=== PATIENT | male | born 1955 | race Two or more races ===

== ENCOUNTER 2021-02-15 09:52 | Emergency (ER) | payer OTHER, MEDICAID ==
[~2021-02-15] VITALS: Ht 188 cm; Wt 131.5 kg
[2021-02-15] MEDS ORDERED: cloNIDine HCL 0.1 MG TAB PO ONE (10:00)
[2021-02-15 10:28] LABS: Basophils # (auto) 0.1 10 ^3/uL (0-0.2); Basophils % (auto) 0.8 % (0.0-2.0); Eosinophils # (auto) 0.7 10 ^3/uL (0-0.8); Eosinophils % (auto) 10.4 % (0.0-7.0); Hemoglobin 14.9 g/dL (13.5-17.5); Lymphocytes # (auto) 1.7 10 ^3/uL (0.4-5.4); Lymphocytes % (auto) 26.7 % (10.0-50.0); Mean Corpuscular Hemoglobin 32.5 pg (28.0-32.0); Mean Corpuscular Hgb Conc. 33.9 g/dL (32.0-36.0); Mean Corpuscular Volume 95.9 fL (80.0-100.0); Monocytes # (auto) 0.5 10 ^3/uL (0-1.3); Monocytes % (auto) 8.2 % (0.0-12.0); Neutrophils # (auto) 3.5 10 ^3/uL (1.6-8.6); Neutrophils % (auto) 53.9 % (37.0-80.0); Nucleated Red Blood Cells % 0.1 %; Platelet Count (auto) 165 10^3/uL (140-450); Red Blood Cells 4.59 10^6/uL (4.5-5.90); Red Cell Distribution Width 14.4 % (11.8-14.3); White Blood Cell 6.5 10^3/uL (4.4-10.8)
[2021-02-15 10:47] LABS: Albumin 3.4 g/dL (3.4-5.0); Calcium 8.4 mg/dL (8.5-10.1); Potassium 4.2 mmol/L (3.5-5.1)
[2021-02-15 10:50] LABS: Bilirubin, Total 0.3 mg/dL (0.2-1.0)
[2021-02-15 11:06] VITALS: BP 174/120
[2021-02-15] MEDS ORDERED: ASPirin 81 mg TAB PO ONE (11:15)
[2021-02-15 12:01] LABS: INR 1.02 (0.9-1.15); Partial Thromboplastin Time 29.2 sec (23.0-31.2)
[2021-02-15] MEDS ORDERED: DIPH25CA66 PO (17:27)
[2021-02-15] MEDS ORDERED: DIVA500T2 PO (17:27)
[2021-02-15] MEDS ORDERED: OLAN1TAB7 PO (17:27)
[2021-02-15] MEDS ORDERED: METO-462 PO (17:27)
[2021-02-15] MEDS ORDERED: PARO10TA93 PO (17:27)
== END 2021-02-15 15:00 | disposition left against medical advice (07) ==
LOC: ER 09:52
DX: I16.0 Hypertensive urgency (principal); R06.02 Shortness of breath; R77.8 Other specified abnormalities of plasma proteins; Z88.0 Allergy status to penicillin; Z88.2 Allergy status to sulfonamides
CPT/HCPCS: 36415; 71046; 80053; 83735; 83880; 84484; 85025; 85379; 85610; 85730; 93005

== ENCOUNTER 2021-02-15 13:19 | Inpatient (IN) | payer OTHER, MEDICAID ==
[~2021-02-15] VITALS: Ht 188 cm; Wt 134.0 kg
[2021-02-15] MEDS ORDERED: ENOXAPARIN SOD 150 MG/1 ML SYRINGE SC ONE (14:45)
[2021-02-15] MEDS ORDERED: NITROGLYCERIN 0.4 MG SL TAB SL PRN ×3 (15:00→16:45)
[2021-02-15] MEDS ORDERED: MORPHINE SULF INJ 2 MG/ML SYRINGE 1ML IV PRN ×3 (15:00→16:45)
[2021-02-15 15:08] LABS: Basophils # (auto) 0.1 10 ^3/uL (0-0.2); Basophils % (auto) 0.8 % (0.0-2.0); Eosinophils # (auto) 0.6 10 ^3/uL (0-0.8); Eosinophils % (auto) 9.1 % (0.0-7.0); Hematocrit 42.7 % (41.0-53.0); Hemoglobin 14.9 g/dL (13.5-17.5); Lymphocytes # (auto) 1.6 10 ^3/uL (0.4-5.4); Lymphocytes % (auto) 22.9 % (10.0-50.0); Mean Corpuscular Hemoglobin 33.3 pg (28.0-32.0); Mean Corpuscular Hgb Conc. 34.8 g/dL (32.0-36.0); Mean Corpuscular Volume 95.6 fL (80.0-100.0); Monocytes # (auto) 0.6 10 ^3/uL (0-1.3); Monocytes % (auto) 8.7 % (0.0-12.0); Neutrophils # (auto) 4.1 10 ^3/uL (1.6-8.6); Neutrophils % (auto) 58.5 % (37.0-80.0); Nucleated Red Blood Cells % 0.2 %; Platelet Count (auto) 158 10^3/uL (140-450); Red Blood Cells 4.46 10^6/uL (4.5-5.90); Red Cell Distribution Width 14.3 % (11.8-14.3); White Blood Cell 6.9 10^3/uL (4.4-10.8)
[2021-02-15 15:25] LABS: Albumin 3.5 g/dL (3.4-5.0); BUN/Creatinine Ratio 21.7; Calcium 8.3 mg/dL (8.5-10.1); Potassium 4.1 mmol/L (3.5-5.1)
[2021-02-15 15:30] LABS: Bilirubin, Total 0.3 mg/dL (0.2-1.0); Total Protein 7.1 g/dL (6.4-8.2)
[2021-02-15] MEDS ORDERED: MORPHINE SULFATE 4 MG/ML SYR/VIAL IV PRN (16:45)
[2021-02-15] MEDS ORDERED: ALUM & MAG HYDROX-SIMETH LIQ(MAALOX) 30 ML PO PRN (16:45)
[2021-02-15] MEDS ORDERED: ONDANSETRON HCL 4 MG/2 ML VIAL IV PRN (16:45)
[2021-02-15] MEDS ORDERED: DOCUSATE SOD 100 MG CAP PO PRN (16:45)
[2021-02-15] MEDS ORDERED: METOPROLOL TARTRATE 25 MG TAB PO ONE (16:45)
[2021-02-15] MEDS ORDERED: HYDROcodone-ACET 5/325MG TAB PO PRN (16:45)
[2021-02-15] MEDS ORDERED: ACETAMINOPHEN 325 MG TAB PO PRN (16:45)
[2021-02-15] MEDS ORDERED: ATORVASTATIN 20 MG TAB PO ONE (16:45)
[2021-02-15] MEDS ORDERED: DIVA500T2 PO (17:27)
[2021-02-15] MEDS ORDERED: DIPH25CA66 PO (17:27)
[2021-02-15] MEDS ORDERED: OLAN1TAB7 PO (17:27)
[2021-02-15] MEDS ORDERED: PARO10TA93 PO (17:27)
[2021-02-15] MEDS ORDERED: METO-462 PO (17:27)
[2021-02-15 18:45] VITALS: BP 140/98
[2021-02-15 21:58] LABS: Urine Bacteria NONE SEEN /hpf (None Seen); Urine Blood 2+ /uL (Negative); Urine Mucus FEW (None Seen); Urine Specific Gravity 1.026 (1.001-1.035); Urine WBC 2 /hpf (0 - 3)
[2021-02-15] MEDS: ATORVASTATIN 20 MG TAB PO SCH (22:00)
[2021-02-15 22:03] LABS: Alcohol, Urine < 3.0 mg/dL (0-10); Amphetamine Screen, Urine NEGATIVE (NEGATIVE); Barbiturate Scree,Urine NEGATIVE (NEGATIVE); Benzodiazephine Screen, Urine NEGATIVE (NEGATIVE); Cannabinoid Screen, Urine NEGATIVE (NEGATIVE); Cocaine Screen, Urine NEGATIVE (NEGATIVE); Opiate Scree,Urine NEGATIVE (NEGATIVE); Phencyclidine Screen, Urine NEGATIVE (NEGATIVE)
[2021-02-15 22:09] VITALS: BP 143/88
[2021-02-16] VITALS (7 sets, daily range): BP systolic 130–200; BP diastolic 79–118
[2021-02-16 06:32] LABS: Basophils # (auto) 0 10 ^3/uL (0-0.2); Basophils % (auto) 0.5 % (0.0-2.0); Eosinophils # (auto) 0.6 10 ^3/uL (0-0.8); Eosinophils % (auto) 9.6 % (0.0-7.0); Hematocrit 44.2 % (41.0-53.0); Hemoglobin 14.9 g/dL (13.5-17.5); Lymphocytes # (auto) 1.4 10 ^3/uL (0.4-5.4); Lymphocytes % (auto) 24.3 % (10.0-50.0); Mean Corpuscular Hemoglobin 32.3 pg (28.0-32.0); Mean Corpuscular Hgb Conc. 33.6 g/dL (32.0-36.0); Mean Corpuscular Volume 96.1 fL (80.0-100.0); Monocytes # (auto) 0.6 10 ^3/uL (0-1.3); Monocytes % (auto) 9.6 % (0.0-12.0); Neutrophils # (auto) 3.3 10 ^3/uL (1.6-8.6); Nucleated Red Blood Cells % 0.1 %; Platelet Count (auto) 143 10^3/uL (140-450); Red Cell Distribution Width 14.7 % (11.8-14.3); White Blood Cell 5.8 10^3/uL (4.4-10.8)
[2021-02-16 06:43] LABS: Potassium 3.9 mmol/L (3.5-5.1)
[2021-02-16 06:52] LABS: Albumin 3.1 g/dL (3.4-5.0); BUN/Creatinine Ratio 31.2; Bilirubin, Total 0.6 mg/dL (0.2-1.0); Calcium 8.3 mg/dL (8.5-10.1); Magnesium 2.1 mg/dL (1.6-2.6); Phosphorus 3.5 mg/dL (2.5-4.90); Total Protein 6.4 g/dL (6.4-8.2); Uric Acid 6.7 mg/dL (3.5-7.2)
[2021-02-16 07:01] LABS: INR 1.08 (0.9-1.15); Partial Thromboplastin Time 33.9 sec (23.0-31.2)
[2021-02-16] MEDS ORDERED: METOPROLOL TARTRATE 25 MG TAB PO SCH (10:00)
[2021-02-16] MEDS ORDERED: LISINOPRIL 5 MG TAB PO SCH (10:00)
[2021-02-16] MEDS: ASPirin 81 mg TAB PO SCH (10:34)
[2021-02-16] MEDS: ENOXAPARIN SOD 40 MG/0.4 ML SYRINGE SC SCH (10:35)
[2021-02-16] MEDS: LORazepam 0.5 MG TAB PO PRN ×2 (13:31→22:56)
[2021-02-16] MEDS ORDERED: OLANZapine 5 MG TAB PO ONE (15:30)
[2021-02-16] MEDS ORDERED: PARoxetine 20 MG TAB PO ONE (15:30)
[2021-02-16] MEDS ORDERED: LISINOPRIL 20 MG TAB PO ONE (15:30)
[2021-02-16] MEDS ORDERED: METOPROLOL TARTRATE 50 MG TAB PO ONE (15:30)
[2021-02-16] MEDS ORDERED: POTASSIUM CHL 10 Meq TABLET PO ONE (15:45)
[2021-02-16] MEDS ORDERED: FUROSEMIDE 40 MG TAB PO ONE (15:45)
[2021-02-16] MEDS: LOPERAMIDE HCL 2 MG CAP PO PRN (17:16)
[2021-02-16] MEDS: METOPROLOL TARTRATE 50 MG TAB PO SCH ×2 (22:00→22:54)
[2021-02-16] MEDS: clonazePAM 0.5 MG TAB PO SCH (22:14)
[2021-02-16] MEDS: ATORVASTATIN 20 MG TAB PO SCH (22:15)
[2021-02-17 05:00] VITALS: BP 155/97
[2021-02-17] MEDS: clonazePAM 0.5 MG TAB PO SCH ×3 (05:41→21:55)
[2021-02-17 09:00] VITALS: BP 144/76
[2021-02-17] MEDS: POTASSIUM CHL 10 Meq TABLET PO SCH (09:32)
[2021-02-17] MEDS: ASPirin 81 mg TAB PO SCH (09:32)
[2021-02-17] MEDS: OLANZapine 5 MG TAB PO SCH (09:33)
[2021-02-17] MEDS: PARoxetine 20 MG TAB PO SCH (09:33)
[2021-02-17] MEDS: METOPROLOL TARTRATE 50 MG TAB PO SCH ×2 (09:33→21:46)
[2021-02-17] MEDS: FUROSEMIDE 40 MG TAB PO SCH (09:33)
[2021-02-17] MEDS: LISINOPRIL 20 MG TAB PO SCH (09:33)
[2021-02-17] MEDS: ENOXAPARIN SOD 40 MG/0.4 ML SYRINGE SC SCH (09:34)
[2021-02-17 13:00] VITALS: BP 146/83
[2021-02-17 16:40] VITALS: BP 126/78
[2021-02-17] MEDS: ATORVASTATIN 20 MG TAB PO SCH (21:55)
[2021-02-17 22:04] VITALS: BP 127/86
[2021-02-18 05:04] VITALS: BP 132/69
[2021-02-18] MEDS: clonazePAM 0.5 MG TAB PO SCH ×3 (05:52→22:01)
[2021-02-18 06:12] LABS: Basophils # (auto) 0 10 ^3/uL (0-0.2); Basophils % (auto) 0.6 % (0.0-2.0); Eosinophils # (auto) 0.5 10 ^3/uL (0-0.8); Eosinophils % (auto) 8.1 % (0.0-7.0); Hematocrit 43.3 % (41.0-53.0); Hemoglobin 14.9 g/dL (13.5-17.5); Lymphocytes # (auto) 1.6 10 ^3/uL (0.4-5.4); Lymphocytes % (auto) 24.2 % (10.0-50.0); Mean Corpuscular Hgb Conc. 34.4 g/dL (32.0-36.0); Mean Corpuscular Volume 95.8 fL (80.0-100.0); Monocytes # (auto) 0.6 10 ^3/uL (0-1.3); Monocytes % (auto) 9.9 % (0.0-12.0); Neutrophils # (auto) 3.7 10 ^3/uL (1.6-8.6); Neutrophils % (auto) 57.2 % (37.0-80.0); Nucleated Red Blood Cells % 0.1 %; Platelet Count (auto) 147 10^3/uL (140-450); Red Blood Cells 4.52 10^6/uL (4.5-5.90); Red Cell Distribution Width 14.4 % (11.8-14.3); White Blood Cell 6.5 10^3/uL (4.4-10.8)
[2021-02-18 06:19] LABS: Calcium 8.5 mg/dL (8.5-10.1)
[2021-02-18 08:25] VITALS: BP 165/75
[2021-02-18 09:15] VITALS: BP 165/75
[2021-02-18] MEDS: POTASSIUM CHL 10 Meq TABLET PO SCH (09:48)
[2021-02-18] MEDS: ASPirin 81 mg TAB PO SCH (09:48)
[2021-02-18] MEDS: FUROSEMIDE 40 MG TAB PO SCH (09:48)
[2021-02-18] MEDS: PARoxetine 20 MG TAB PO SCH (09:49)
[2021-02-18] MEDS: LISINOPRIL 20 MG TAB PO SCH (09:49)
[2021-02-18] MEDS: OLANZapine 5 MG TAB PO SCH (09:49)
[2021-02-18] MEDS: METOPROLOL TARTRATE 50 MG TAB PO SCH ×2 (09:50→22:02)
[2021-02-18] MEDS: ENOXAPARIN SOD 40 MG/0.4 ML SYRINGE SC SCH (09:50)
[2021-02-18 12:26] VITALS: BP 117/69
[2021-02-18 16:57] VITALS: BP 130/70
[2021-02-18] MEDS ORDERED: CHOLECALCIFEROL (VITD3) 2,000 UNIT CAP/TAB PO ONE (17:00)
[2021-02-18 22:00] VITALS: BP 129/81
[2021-02-18] MEDS: ATORVASTATIN 20 MG TAB PO SCH (22:01)
[2021-02-19] VITALS (8 sets, daily range): BP systolic 128–165; BP diastolic 83–98
[2021-02-19] MEDS: clonazePAM 0.5 MG TAB PO SCH ×3 (05:44→21:59)
[2021-02-19] MEDS: ASPirin 81 mg TAB PO SCH (10:05)
[2021-02-19] MEDS: CHOLECALCIFEROL (VITD3) 2,000 UNIT CAP/TAB PO SCH (10:05)
[2021-02-19] MEDS: PARoxetine 20 MG TAB PO SCH (10:06)
[2021-02-19] MEDS: OLANZapine 5 MG TAB PO SCH (10:06)
[2021-02-19] MEDS: FUROSEMIDE 40 MG TAB PO SCH (10:07)
[2021-02-19] MEDS: POTASSIUM CHL 10 Meq TABLET PO SCH (10:07)
[2021-02-19] MEDS: ENOXAPARIN SOD 40 MG/0.4 ML SYRINGE SC SCH (10:08)
[2021-02-19] MEDS: METOPROLOL TARTRATE 50 MG TAB PO SCH ×2 (10:08→22:02)
[2021-02-19] MEDS: LISINOPRIL 20 MG TAB PO SCH (10:12)
[2021-02-19] MEDS ORDERED: ADENOSINE 114 MG in GIVE UN-DILUTED 0 ML IV STA (10:25)
[2021-02-19] MEDS ORDERED: ASPI-231 PO (11:03)
[2021-02-19] MEDS ORDERED: CHOL20007 PO (11:03)
[2021-02-19 12:30] LABS: BUN/Creatinine Ratio 22.4; Calcium 8.7 mg/dL (8.5-10.1); Potassium 4.2 mmol/L (3.5-5.1)
[2021-02-19] MEDS: LOPERAMIDE HCL 2 MG CAP PO PRN (13:04)
[2021-02-19] MEDS: ATORVASTATIN 20 MG TAB PO SCH (22:01)
[2021-02-20] VITALS (7 sets, daily range): BP systolic 121–148; BP diastolic 71–99
[2021-02-20] MEDS: clonazePAM 0.5 MG TAB PO SCH ×2 (05:47→14:21)
[2021-02-20] MEDS: METOPROLOL TARTRATE 50 MG TAB PO SCH ×2 (10:00→22:50)
[2021-02-20] MEDS: POTASSIUM CHL 10 Meq TABLET PO SCH (10:15)
[2021-02-20] MEDS: ASPirin 81 mg TAB PO SCH (10:15)
[2021-02-20] MEDS: OLANZapine 5 MG TAB PO SCH (10:15)
[2021-02-20] MEDS: PARoxetine 20 MG TAB PO SCH (10:16)
[2021-02-20] MEDS: ENOXAPARIN SOD 40 MG/0.4 ML SYRINGE SC SCH (10:17)
[2021-02-20] MEDS: CHOLECALCIFEROL (VITD3) 2,000 UNIT CAP/TAB PO SCH (10:17)
[2021-02-20] MEDS: FUROSEMIDE 40 MG TAB PO SCH (10:19)
[2021-02-20] MEDS: LISINOPRIL 20 MG TAB PO SCH (10:20)
[2021-02-20] MEDS ORDERED: clonazePAM 0.5 MG TAB PO PRN (22:45)
[2021-02-20] MEDS: ATORVASTATIN 20 MG TAB PO SCH (22:49)
[2021-02-21 05:00] VITALS: BP 120/77
[2021-02-21 08:00] VITALS: BP 140/84
[2021-02-21 09:00] VITALS: BP 143/76
[2021-02-21] MEDS: ASPirin 81 mg TAB PO SCH (09:42)
[2021-02-21] MEDS: CHOLECALCIFEROL (VITD3) 2,000 UNIT CAP/TAB PO SCH (09:42)
[2021-02-21] MEDS: OLANZapine 5 MG TAB PO SCH (09:42)
[2021-02-21] MEDS: LISINOPRIL 20 MG TAB PO SCH (09:43)
[2021-02-21] MEDS: METOPROLOL TARTRATE 50 MG TAB PO SCH (09:43)
[2021-02-21] MEDS: PARoxetine 20 MG TAB PO SCH (09:43)
[2021-02-21] MEDS: ENOXAPARIN SOD 40 MG/0.4 ML SYRINGE SC SCH (09:44)
[2021-02-21] MEDS: POTASSIUM CHL 10 Meq TABLET PO SCH (09:44)
[2021-02-21] MEDS: FUROSEMIDE 40 MG TAB PO SCH (09:44)
[2021-02-21] MEDS ORDERED: LISI40TA11 PO (11:17)
[2021-02-21 11:43] VITALS: BP 143/76
[2021-02-21 13:00] VITALS: BP 135/87
== END 2021-02-21 14:00 | disposition home or self-care (01) | DRG 281 ==
LOC: ER 13:19 → TELE 14:47 → TELE-WESTW 16:53
PROVIDERS: ADMIT Hospitalist; ATTEND Internal Medicine
DX: I16.0 Hypertensive urgency (principal); I21.A1 Myocardial infarction type 2; D68.69 Other thrombophilia; I48.0 Paroxysmal atrial fibrillation; E66.01 Morbid (severe) obesity due to excess calories; F20.9 Schizophrenia, unspecified; E55.9 Vitamin D deficiency, unspecified; Z68.38 Body mass index [BMI] 38.0-38.9, adult; F31.9 Bipolar disorder, unspecified; G47.30 Sleep apnea, unspecified; Z80.0 Family history of malignant neoplasm of digestive organs; Z82.49 Family history of ischemic heart disease and other diseases of the circulatory system; Z88.0 Allergy status to penicillin; Z88.2 Allergy status to sulfonamides; F43.22 Adjustment disorder with anxiety; R19.7 Diarrhea, unspecified; Z20.822 Contact with and (suspected) exposure to COVID-19; I11.0 Hypertensive heart disease with heart failure; I50.9 Heart failure, unspecified
CPT/HCPCS: 36415; 36600; 71045; 78452; 78582; 80048; 80053; 80307; 81001; 82306; 82728; 82805; 83036; 83735; 83880; 84100; 84443; 84484; 84550; 85025; 85379; 85610; 85730; 87040; 87045; 87086; 87426; 87427; 93005; 93017; 93306; 93970; 96372; G0378; J0153

== ENCOUNTER 2022-03-31 12:37 | Emergency (ER) | payer MEDICARE, OTHER ==
[~2022-03-31 12:37] MED LIST: ASPI1TAB20 PO; CHOL20007 PO; DIVA500T2 PO; LISI40TA11 PO; METO-462 PO; OLAN1TAB7 PO; PARO10TA93 PO
[2022-03-31] MEDS ORDERED: SODIUM CHLORIDE 0.9% 1,000 ML IV ONE ×2 (12:45)
[2022-03-31 13:58] LABS: Basophils # (auto) 0.1 10 ^3/uL (0-0.2); Basophils % (auto) 0.4 % (0.0-2.0); Eosinophils # (auto) 0.2 10 ^3/uL (0-0.8); Eosinophils % (auto) 1.1 % (0.0-7.0); Hematocrit 52.5 % (41.0-53.0); Hemoglobin 17.3 g/dL (13.5-17.5); Lymphocytes # (auto) 1.1 10 ^3/uL (0.4-5.4); Lymphocytes % (auto) 7.3 % (10.0-50.0); Mean Corpuscular Hemoglobin 30.3 pg (28.0-32.0); Mean Corpuscular Hgb Conc. 32.9 g/dL (32.0-36.0); Mean Corpuscular Volume 92.1 fL (80.0-100.0); Monocytes # (auto) 0.7 10 ^3/uL (0-1.3); Monocytes % (auto) 4.7 % (0.0-12.0); Neutrophils # (auto) 13.2 10 ^3/uL (1.6-8.6); Neutrophils % (auto) 86.5 % (37.0-80.0); Nucleated Red Blood Cells % 0.3 %; Red Cell Distribution Width 14.3 % (11.8-14.3); White Blood Cell 15.3 10^3/uL (4.4-10.8)
[2022-03-31 14:06] LABS: Albumin 4.2 g/dL (3.4-5.0); Calcium 9.2 mg/dL (8.5-10.1); Potassium 3.8 mmol/L (3.5-5.1)
[2022-03-31 14:10] LABS: BUN/Creatinine Ratio 16.7; Bilirubin, Total 0.6 mg/dL (0.2-1.0); Total Protein 8.3 g/dL (6.4-8.2)
[2022-03-31 14:16] LABS: INR 1.01 (0.9-1.15); Partial Thromboplastin Time 29.1 sec (24.6-33.4)
[2022-03-31 16:00] VITALS: BP 143/78
[2022-03-31] MEDS ORDERED: levoFLOXacin 500MG 100 ML IV ONE (16:45)
== END 2022-03-31 15:27 | disposition home or self-care (01) ==
LOC: ER 12:37 → EDBD 12:37 → ER 15:27
DX: G40.909 Epilepsy, unspecified, not intractable, without status epilepticus (principal); I10 Essential (primary) hypertension; D72.829 Elevated white blood cell count, unspecified; Z79.82 Long term (current) use of aspirin; Z79.899 Other long term (current) drug therapy; Z88.0 Allergy status to penicillin; Z88.2 Allergy status to sulfonamides
CPT/HCPCS: 36415; 70450; 71045; 80053; 84484; 85025; 85610; 85730; 93005; 96360; 99285; J7030

== ENCOUNTER 2023-01-24 17:50 | Emergency (ER) | payer OTHER, MEDICAID ==
[~2023-01-24] VITALS: Ht 182.9 cm; Wt 113.6 kg
[2023-01-24 17:50] VITALS: BP 136/76
[2023-01-24] MEDS ORDERED: HYDR-3682 PO (18:58)
[2023-01-24] MEDS ORDERED: clonazePAM 0.5 MG TAB PO ONE (19:00)
== END 2023-01-24 19:22 | disposition home or self-care (01) ==
LOC: ER 17:50 → EDBD 17:50 → ER 19:22
DX: F41.9 Anxiety disorder, unspecified (principal); E78.5 Hyperlipidemia, unspecified; I10 Essential (primary) hypertension

== ENCOUNTER 2023-02-12 09:38 | Inpatient (IN) | payer OTHER, MEDICAID ==
[~2023-02-12] VITALS: Ht 185.4 cm; Wt 130.2 kg
[~2023-02-12 09:38] MED LIST changes: -DIVA500T2 PO; +DIVA500T3 PO; +HYDR-3682 PO; -LISI40TA11 PO; +LISI40TA16 PO
[2023-02-12] MEDS ORDERED: IPRATROPIUM BROM 0.5 MG/2.5ML INH SOL NEB ONE (10:00)
[2023-02-12] MEDS ORDERED: ALBUTEROL SULF 2.5 MG/0.5ML(0.5%) NEB SOLN NEB ONE (10:00)
[2023-02-12 10:45] LABS: Basophils # (auto) 0.1 10 ^3/uL (0-0.2); Basophils % (auto) 1.4 % (0.0-2.0); Eosinophils # (auto) 0.4 10 ^3/uL (0-0.8); Hematocrit 45.3 % (41.0-53.0); Hemoglobin 15.3 g/dL (13.5-17.5); Lymphocytes # (auto) 1.6 10 ^3/uL (0.4-5.4); Lymphocytes % (auto) 27.2 % (10.0-50.0); Mean Corpuscular Hemoglobin 30.5 pg (28.0-32.0); Mean Corpuscular Hgb Conc. 33.8 g/dL (32.0-36.0); Mean Corpuscular Volume 90.2 fL (80.0-100.0); Monocytes # (auto) 0.8 10 ^3/uL (0-1.3); Monocytes % (auto) 13.9 % (0.0-12.0); Neutrophils % (auto) 51.5 % (37.0-80.0); Nucleated Red Blood Cells % 0.2 %; Red Blood Cells 5.03 10^6/uL (4.5-5.90); Red Cell Distribution Width 15.4 % (11.8-14.3); White Blood Cell 5.8 10^3/uL (4.4-10.8)
[2023-02-12 10:58] LABS: Albumin 3.8 g/dL (3.4-5.0); Calcium 8.4 mg/dL (8.5-10.1)
[2023-02-12] MEDS ORDERED: methylPREDNISolone SOD SUCC 125 MG/2 ML VL IV ONE (11:00)
[2023-02-12] MEDS ORDERED: IPRATROPIUM BROM 0.5 MG/2.5ML INH SOL HHN ONE (11:00)
[2023-02-12] MEDS ORDERED: ALBUTEROL SULF 2.5 MG/0.5ML(0.5%) NEB SOLN HHN ONE (11:00)
[2023-02-12 11:01] LABS: BUN/Creatinine Ratio 10.4 (10.0-20.0); Bilirubin, Total 0.4 mg/dL (0.2-1.0); Total Protein 7.4 g/dL (6.4-8.2)
[2023-02-12] MEDS ORDERED: ONDANSETRON HCL 4 MG/2 ML VIAL IV PRN (13:15)
[2023-02-12 13:46] VITALS: BP 127/79
[2023-02-12] MEDS ORDERED: methylPREDNISolone SOD SUCC 125 MG/2 ML VL IV SCH (14:00)
[2023-02-12] MEDS: DOCUSATE SOD 100 MG CAP PO PRN ×2 (14:38→14:40)
[2023-02-12] MEDS ORDERED: methylPREDNISolone SOD SUCC 40 MG/ML VL IV ONE (15:00)
[2023-02-12] MEDS: MORPHINE SULFATE INJ 2 MG/ml SYRG IV PRN ×2 (15:05→20:09)
[2023-02-12 17:15] VITALS: BP 148/78
[2023-02-12] MEDS ORDERED: TORS10TA12 PO (17:26)
[2023-02-12] MEDS ORDERED: HYDR-4227 PO (17:26)
[2023-02-12] MEDS ORDERED: ATOR20TA50 PO (17:26)
[2023-02-12] MEDS ORDERED: CLON-853 PO (17:28)
[2023-02-12] MEDS: IPRATROPIUM BROM 0.5 MG/2.5ML INH SOL NEB SCH (19:40)
[2023-02-12] MEDS: ALBUTEROL SULF 2.5 MG/0.5ML(0.5%) NEB SOLN NEB SCH (19:40)
[2023-02-12] MEDS: methylPREDNISolone SOD SUCC 40 MG/ML VL IV SCH (21:44)
[2023-02-12 22:00] VITALS: BP 141/84
[2023-02-13] MEDS: clonazePAM 0.5 MG TAB PO SCH ×4 (00:25→22:33)
[2023-02-13] MEDS: ALBUTEROL SULF 2.5 MG/0.5ML(0.5%) NEB SOLN NEB SCH ×4 (01:23→18:14)
[2023-02-13] MEDS: IPRATROPIUM BROM 0.5 MG/2.5ML INH SOL NEB SCH ×4 (01:23→18:14)
[2023-02-13 05:00] VITALS: BP 124/62
[2023-02-13 05:24] LABS: Basophils # (auto) 0 10 ^3/uL (0-0.2); Basophils % (auto) 0.1 % (0.0-2.0); Eosinophils # (auto) 0 10 ^3/uL (0-0.8); Hematocrit 43.3 % (41.0-53.0); Lymphocytes # (auto) 0.6 10 ^3/uL (0.4-5.4); Lymphocytes % (auto) 16.7 % (10.0-50.0); Mean Corpuscular Hemoglobin 31.2 pg (28.0-32.0); Mean Corpuscular Hgb Conc. 34.6 g/dL (32.0-36.0); Mean Corpuscular Volume 90.3 fL (80.0-100.0); Monocytes # (auto) 0 10 ^3/uL (0-1.3); Monocytes % (auto) 1.3 % (0.0-12.0); Neutrophils # (auto) 3.1 10 ^3/uL (1.6-8.6); Neutrophils % (auto) 81.9 % (37.0-80.0); Nucleated Red Blood Cells % 0.1 %; Red Cell Distribution Width 14.9 % (11.8-14.3); White Blood Cell 3.8 10^3/uL (4.4-10.8)
[2023-02-13 05:37] LABS: Potassium 4.4 mmol/L (3.5-5.1)
[2023-02-13 05:43] LABS: Albumin 3.6 g/dL (3.4-5.0); BUN/Creatinine Ratio 11.3 (10.0-20.0); Bilirubin, Total 0.4 mg/dL (0.2-1.0); Calcium 8.6 mg/dL (8.5-10.1); Total Protein 7.2 g/dL (6.4-8.2)
[2023-02-13] MEDS ORDERED: clonazePAM 0.5 MG TAB PO SCH (06:00)
[2023-02-13] MEDS: methylPREDNISolone SOD SUCC 40 MG/ML VL IV SCH ×2 (06:42→22:33)
[2023-02-13] MEDS ORDERED: PARoxetine 20 MG TAB PO SCH (07:00)
[2023-02-13] MEDS ORDERED: OLANZapine 5 MG TAB PO SCH (07:00)
[2023-02-13] MEDS: MORPHINE SULFATE INJ 2 MG/ml SYRG IV PRN ×4 (08:53→21:08)
[2023-02-13 09:18] VITALS: BP 142/82
[2023-02-13] MEDS: CHOLECALCIFEROL (VITD3) 2,000 UNIT CAP/TAB PO SCH (09:58)
[2023-02-13] MEDS: LISINOPRIL 20 MG TAB PO SCH (09:58)
[2023-02-13] MEDS: ASPirin-EC 81 mg tab PO SCH (09:58)
[2023-02-13] MEDS: METOPROLOL TARTRATE 50 MG TAB PO SCH (09:59)
[2023-02-13] MEDS ORDERED: guaiFENesin-DM 100/10mg/5ml SYR PO ONE (12:30)
[2023-02-13 13:07] VITALS: BP 134/79
[2023-02-13 16:49] VITALS: BP 138/78
[2023-02-13 22:00] VITALS: BP 121/65
[2023-02-14] MEDS: ALBUTEROL SULF 2.5 MG/0.5ML(0.5%) NEB SOLN NEB SCH ×5 (00:05→23:34)
[2023-02-14] MEDS: IPRATROPIUM BROM 0.5 MG/2.5ML INH SOL NEB SCH ×5 (00:05→23:34)
[2023-02-14] MEDS: MORPHINE SULFATE INJ 2 MG/ml SYRG IV PRN ×5 (04:34→21:06)
[2023-02-14] MEDS: guaiFENesin-DM 100/10mg/5ml SYR PO PRN ×3 (04:35→21:59)
[2023-02-14 05:00] VITALS: BP 139/72
[2023-02-14 05:16] LABS: Basophils # (auto) 0 10 ^3/uL (0-0.2); Basophils % (auto) 0.2 % (0.0-2.0); Eosinophils # (auto) 0 10 ^3/uL (0-0.8); Hemoglobin 14.4 g/dL (13.5-17.5); Lymphocytes # (auto) 0.7 10 ^3/uL (0.4-5.4); Lymphocytes % (auto) 6.2 % (10.0-50.0); Mean Corpuscular Hemoglobin 31.1 pg (28.0-32.0); Mean Corpuscular Hgb Conc. 34.2 g/dL (32.0-36.0); Monocytes # (auto) 0.4 10 ^3/uL (0-1.3); Monocytes % (auto) 3.5 % (0.0-12.0); Neutrophils # (auto) 10.1 10 ^3/uL (1.6-8.6); Neutrophils % (auto) 90.1 % (37.0-80.0); Red Blood Cells 4.61 10^6/uL (4.5-5.90); White Blood Cell 11.2 10^3/uL (4.4-10.8)
[2023-02-14 05:36] LABS: Calcium 8.3 mg/dL (8.5-10.1); Potassium 4.5 mmol/L (3.5-5.1)
[2023-02-14 05:38] LABS: BUN/Creatinine Ratio 16.8 (10.0-20.0)
[2023-02-14] MEDS: clonazePAM 0.5 MG TAB PO SCH ×3 (06:04→21:59)
[2023-02-14 09:13] VITALS: BP 137/74
[2023-02-14] MEDS: ASPirin-EC 81 mg tab PO SCH (09:32)
[2023-02-14] MEDS: CHOLECALCIFEROL (VITD3) 2,000 UNIT CAP/TAB PO SCH (09:32)
[2023-02-14] MEDS: methylPREDNISolone SOD SUCC 40 MG/ML VL IV SCH ×2 (09:32→21:59)
[2023-02-14] MEDS: LISINOPRIL 20 MG TAB PO SCH (09:32)
[2023-02-14] MEDS: METOPROLOL TARTRATE 50 MG TAB PO SCH (09:33)
[2023-02-14 12:51] VITALS: BP 147/77
[2023-02-14 16:44] VITALS: BP 129/64
[2023-02-14 22:00] VITALS: BP 135/69
[2023-02-15] VITALS (7 sets, daily range): BP systolic 141–159; BP diastolic 72–94
[2023-02-15] MEDS: MORPHINE SULFATE INJ 2 MG/ml SYRG IV PRN ×4 (02:28→18:07)
[2023-02-15] MEDS: clonazePAM 0.5 MG TAB PO SCH ×3 (05:45→21:08)
[2023-02-15] MEDS: IPRATROPIUM BROM 0.5 MG/2.5ML INH SOL NEB SCH ×4 (07:16→23:56)
[2023-02-15] MEDS: ALBUTEROL SULF 2.5 MG/0.5ML(0.5%) NEB SOLN NEB SCH ×4 (07:16→23:56)
[2023-02-15] MEDS: guaiFENesin-DM 100/10mg/5ml SYR PO PRN ×2 (09:55→15:34)
[2023-02-15] MEDS: methylPREDNISolone SOD SUCC 40 MG/ML VL IV SCH ×2 (09:56→21:08)
[2023-02-15] MEDS: CHOLECALCIFEROL (VITD3) 2,000 UNIT CAP/TAB PO SCH (09:57)
[2023-02-15] MEDS: LISINOPRIL 20 MG TAB PO SCH (09:57)
[2023-02-15] MEDS: ASPirin-EC 81 mg tab PO SCH (09:57)
[2023-02-15] MEDS: METOPROLOL TARTRATE 50 MG TAB PO SCH (09:58)
[2023-02-15] MEDS: DOXYCYCLINE 100MG/250ML 250 ML IV SCH (15:16)
[2023-02-15] MEDS: HYDROcodone-ACET 5/325MG TAB PO PRN ×2 (15:35→21:08)
[2023-02-16] VITALS (7 sets, daily range): BP systolic 142–168; BP diastolic 81–100
[2023-02-16] MEDS: MORPHINE SULFATE INJ 2 MG/ml SYRG IV PRN ×6 (00:05→23:07)
[2023-02-16] MEDS: guaiFENesin-DM 100/10mg/5ml SYR PO PRN ×2 (00:07→08:59)
[2023-02-16] MEDS: DOXYCYCLINE 100MG/250ML 250 ML IV SCH ×2 (02:00→14:01)
[2023-02-16] MEDS: clonazePAM 0.5 MG TAB PO SCH ×3 (06:01→21:39)
[2023-02-16 06:19] LABS: Basophils # (auto) 0 10 ^3/uL (0-0.2); Basophils % (auto) 0.1 % (0.0-2.0); Eosinophils # (auto) 0 10 ^3/uL (0-0.8); Hemoglobin 14.3 g/dL (13.5-17.5); Lymphocytes # (auto) 0.9 10 ^3/uL (0.4-5.4); Lymphocytes % (auto) 8.2 % (10.0-50.0); Mean Corpuscular Hemoglobin 30.7 pg (28.0-32.0); Mean Corpuscular Hgb Conc. 34.1 g/dL (32.0-36.0); Mean Corpuscular Volume 89.9 fL (80.0-100.0); Monocytes # (auto) 0.5 10 ^3/uL (0-1.3); Monocytes % (auto) 4.1 % (0.0-12.0); Neutrophils # (auto) 9.7 10 ^3/uL (1.6-8.6); Neutrophils % (auto) 87.6 % (37.0-80.0); Nucleated Red Blood Cells % 0.1 %; Red Blood Cells 4.67 10^6/uL (4.5-5.90); Red Cell Distribution Width 14.9 % (11.8-14.3); White Blood Cell 11.1 10^3/uL (4.4-10.8)
[2023-02-16 06:34] LABS: Albumin 3.3 g/dL (3.4-5.0); Calcium 8.3 mg/dL (8.5-10.1); Potassium 4.3 mmol/L (3.5-5.1)
[2023-02-16] MEDS: IPRATROPIUM BROM 0.5 MG/2.5ML INH SOL NEB SCH ×4 (06:37→23:49)
[2023-02-16] MEDS: ALBUTEROL SULF 2.5 MG/0.5ML(0.5%) NEB SOLN NEB SCH ×4 (06:37→23:49)
[2023-02-16 06:39] LABS: Bilirubin, Total 0.5 mg/dL (0.2-1.0); Total Protein 6.6 g/dL (6.4-8.2)
[2023-02-16] MEDS: methylPREDNISolone SOD SUCC 40 MG/ML VL IV SCH ×2 (08:49→21:39)
[2023-02-16] MEDS: METOPROLOL TARTRATE 50 MG TAB PO SCH (08:50)
[2023-02-16] MEDS: CHOLECALCIFEROL (VITD3) 2,000 UNIT CAP/TAB PO SCH (08:50)
[2023-02-16] MEDS: LISINOPRIL 20 MG TAB PO SCH (08:51)
[2023-02-16] MEDS: ASPirin-EC 81 mg tab PO SCH (08:51)
[2023-02-16] MEDS ORDERED: DOXY-448 PO (10:07)
[2023-02-16] MEDS ORDERED: PRED20TA2 PO (10:07)
[2023-02-16] MEDS: HYDROcodone-ACET 5/325MG TAB PO PRN (20:19)
[2023-02-17] MEDS: DOXYCYCLINE 100MG/250ML 250 ML IV SCH ×2 (02:22→13:04)
[2023-02-17] MEDS: HYDROcodone-ACET 5/325MG TAB PO PRN ×2 (02:24→21:01)
[2023-02-17] MEDS: MORPHINE SULFATE INJ 2 MG/ml SYRG IV PRN ×4 (04:29→18:21)
[2023-02-17 05:00] VITALS: BP 155/96
[2023-02-17] MEDS: clonazePAM 0.5 MG TAB PO SCH ×3 (06:01→21:00)
[2023-02-17] MEDS: ALBUTEROL SULF 2.5 MG/0.5ML(0.5%) NEB SOLN NEB SCH ×3 (06:32→18:31)
[2023-02-17] MEDS: IPRATROPIUM BROM 0.5 MG/2.5ML INH SOL NEB SCH ×3 (06:32→18:31)
[2023-02-17 08:00] VITALS: BP 141/94
[2023-02-17 08:45] VITALS: BP 141/94
[2023-02-17] MEDS: methylPREDNISolone SOD SUCC 40 MG/ML VL IV SCH ×2 (09:28→21:00)
[2023-02-17] MEDS: ASPirin-EC 81 mg tab PO SCH (09:28)
[2023-02-17] MEDS: LISINOPRIL 20 MG TAB PO SCH (09:32)
[2023-02-17] MEDS: CHOLECALCIFEROL (VITD3) 2,000 UNIT CAP/TAB PO SCH (09:32)
[2023-02-17] MEDS: METOPROLOL TARTRATE 50 MG TAB PO SCH (09:33)
[2023-02-17 12:58] VITALS: BP 142/78
[2023-02-17 17:00] VITALS: BP 154/86
[2023-02-17 22:00] VITALS: BP 119/62
[2023-02-18] MEDS: MORPHINE SULFATE INJ 2 MG/ml SYRG IV PRN ×2 (00:19→05:35)
[2023-02-18] MEDS: ALBUTEROL SULF 2.5 MG/0.5ML(0.5%) NEB SOLN NEB SCH ×3 (00:24→11:48)
[2023-02-18] MEDS: IPRATROPIUM BROM 0.5 MG/2.5ML INH SOL NEB SCH ×3 (00:24→11:48)
[2023-02-18] MEDS: DOXYCYCLINE 100MG/250ML 250 ML IV SCH ×2 (02:06→14:57)
[2023-02-18 05:00] VITALS: BP 114/73
[2023-02-18] MEDS: clonazePAM 0.5 MG TAB PO SCH ×2 (05:34→14:57)
[2023-02-18 08:00] VITALS: BP 114/73
[2023-02-18 09:00] VITALS: BP 133/87
[2023-02-18] MEDS: LISINOPRIL 20 MG TAB PO SCH (09:13)
[2023-02-18] MEDS: METOPROLOL TARTRATE 50 MG TAB PO SCH (09:14)
[2023-02-18] MEDS: CHOLECALCIFEROL (VITD3) 2,000 UNIT CAP/TAB PO SCH (09:14)
[2023-02-18] MEDS: ASPirin-EC 81 mg tab PO SCH (09:14)
[2023-02-18] MEDS: methylPREDNISolone SOD SUCC 40 MG/ML VL IV SCH (09:15)
[2023-02-18] MEDS: HYDROcodone-ACET 5/325MG TAB PO PRN (11:47)
[2023-02-18 13:00] VITALS: BP 124/85
[2023-02-18 15:16] VITALS: BP 133/87
== END 2023-02-18 15:47 | DRG 189 ==
LOC: ER 09:38 → OVERFLOW 13:09 → EAST 17:08
PROVIDERS: ADMIT Nurse Practitioner Family; ATTEND Internal Medicine Pulmonary Disease
DX: J96.01 Acute respiratory failure with hypoxia (principal); J45.901 Unspecified asthma with (acute) exacerbation; I10 Essential (primary) hypertension; J44.9 Chronic obstructive pulmonary disease, unspecified; E66.01 Morbid (severe) obesity due to excess calories; I16.0 Hypertensive urgency; Z20.822 Contact with and (suspected) exposure to COVID-19; F41.9 Anxiety disorder, unspecified; E78.5 Hyperlipidemia, unspecified; R74.01 Elevation of levels of liver transaminase levels; G89.29 Other chronic pain; R73.9 Hyperglycemia, unspecified; Z68.37 Body mass index [BMI] 37.0-37.9, adult; Z88.0 Allergy status to penicillin; Z88.2 Allergy status to sulfonamides
CPT/HCPCS: 36415; 71045; 71250; 80048; 80053; 83036; 83880; 85025; 87426; 93005; 94640; 94644; 96374; 96375; G0378; J2405; J3490